=== PATIENT | male | born 1980 | race Caucasian/White ===

== ENCOUNTER → 2020-09-22 | Outpatient (CLI) | payer OTHER ==
[~2020-09-22] MED LIST: AMOXICILLIN500 MG PO; AUGMENTIN 875 M1 TAB PO; DAYPRO600 M1 PO; MOTRIN600 MG PO
== END | disposition home or self-care (01) ==
LOC: COVID19 12:20
PROVIDERS: ATTEND Physician Assistant Medical
DX: Z20.828 Contact with and (suspected) exposure to other viral communicable diseases (principal)

== ENCOUNTER 2023-06-28 08:04 | Emergency (ER) | payer BC ==
[~2023-06-28] VITALS: Wt 113.4 kg
[2023-06-28] MEDS ORDERED: ZITHROMAX250 MG PO (10:36)
== END 2023-06-28 10:41 | disposition home or self-care (01) ==
LOC: ED 08:04
DX: R04.0 Epistaxis (principal); J32.9 Chronic sinusitis, unspecified; Z98.890 Other specified postprocedural states